=== PATIENT | male | born 1985 | race Caucasian/White ===

== ENCOUNTER 2017-09-14 09:16 | Emergency (ER) | payer SELFPAY ==
[~2017-09-14] VITALS: Ht 177.8 cm; Wt 81.0 kg
[2017-09-14 09:20] VITALS: PULSE 103; RESP 16; TEMP 98.2; O2SAT 98
[2017-09-14 09:41] LABS: BILIRUBIN, URINE NEG (NEG); BLOOD, URINE NEG (NEG); GLUCOSE,URINE NEG (NEG); KETONE, URINE 40 mg/dL (NEG); NITRITE,URINE NEG (NEG); PH, URINE 5.5 (5.0-8.5); URINE COLOR YELLOW (YELLW/STRAW); URINE LEUKOCYTE ESTERASE NEG (NEG)
--- NOTE | 2017-09-14 09:51 | PD ---
HPI Chief Complaint: Flank/Kidney Pain Time Seen by Provider: 09:46 Travel History International Travel<30 days: No Contact w/Intl Traveler<30days: No Traveled to known affect area: No History of Present Illness HPI Patient presents with complaints of right flank pain this morning. 7 out of 10. Denies colicky nature. Constant. Reports awakening this morning with 6-7 episodes of vomiting with a subjective fever. No history of kidney stones. Admits to alcohol use last night. Positive smoker. Uses marijuana daily. Denies any new or undercooked foods. PFSH Past Medical History Medical History: Denies Significant Hx Influenza Vaccination: No Past Surgical History Surgical History: No Previous Surgery Social History Alcohol Use: Yes (OCCAS) Tobacco Use: Yes (1/2 PPD) Substance Use: Yes (MARIJUANA REGULARLY-USED THIS MORNING) Allergies-Medications (Allergen,Severity, Reaction): Coded Allergies: iodine (Verified Allergy, Unknown, 09/14/17) Reported Meds & Prescriptions Reported Meds & Active Scripts Active No Active Prescriptions or Reported Medications Review of Systems General / Constitutional: No: Fever Eyes: No: Visual changes HENT: No: Headaches Cardiovascular: No: Chest Pain or Discomfort Respiratory: No: Shortness of Breath Gastrointestinal: Positive: Nausea, Vomiting, No: Abdominal Pain Genitourinary: Positive: Flank Pain, No: Dysuria Musculoskeletal: No: Pain Skin: No Rash Neurologic: No: Weakness Psychiatric: No: Depression Endocrine: No: Polydipsia Hematologic/Lymphatic: No: Easy Bruising Physical Exam Narrative GENERAL: Well-nourished, well-developed patient. SKIN: Focused skin assessment warm/dry. HEAD: Normocephalic. EYES: No scleral icterus. No injection or drainage. NECK: Supple, trachea midline. No JVD or lymphadenopathy. CARDIOVASCULAR: Regular rate and rhythm without murmurs, gallops, or rubs. RESPIRATORY: Breath sounds equal bilaterally. No accessory muscle use. GASTROINTESTINAL: Abdomen soft, non-tender, nondistended. MUSCULOSKELETAL: No cyanosis, or edema. BACK: Nontender without obvious deformity. No CVA tenderness. Data Data Last Documented VS Vital Signs Date Time Temp Pulse Resp B/P (MAP) Pulse Ox O2 Delivery O2 Flow Rate FiO2 09/14/17 10:08 84 16 134/92 (106) 96 Room Air 09/14/17 09:20 98.2 Orders Orders Urinalysis - C+S If Indicated (09/14/17 09:21) Sodium Chlor 0.9% 1000 Ml Inj (Ns 1000 M (09/14/17 10:00) Ondansetron Inj (Zofran Inj) (09/14/17 10:00) Pantoprazole Inj (Protonix Inj) (09/14/17 10:00) Al-Mag Hy-Si 40-40-4 Mg/Ml Liq (Mag-Al P (09/14/17 10:00) Lidocaine 2% Viscous (Xylocaine 2% Visco (09/14/17 10:00) Labs Laboratory Tests Test 09/14/17 09:30 Urine Collection Type CLEAN CATCH Urine Color YELLOW Urine Turbidity CLEAR Urine pH 5.5 Urine Specific [place] GREATER/EQUAL 1.030 Urine Protein NEG mg/dL Urine Glucose (UA) NEG mg/dL Urine Ketones 40 mg/dL Urine Occult Blood NEG Urine Nitrite NEG Urine Bilirubin NEG Urine Urobilinogen 0.2 MG/DL Urine Leukocyte Esterase NEG Urine RBC 0-3 /hpf Urine Squamous Epithelial Cells 0-5 /hpf Urine Mucus FEW /lpf Microscopic Urinalysis Comment CULT NOT INDICATED Urine Collection Time 09:30 [facility] Medical Decision Making Medical Screen Exam Complete: Yes Emergency Medical Condition: Yes Differential Diagnosis Alcohol withdrawal, gastritis, reflux, food poisoning Narrative Course Assessment plan discussed with patient at bedside. Much improved after GI cocktail and fluids. Taking fluids well. Diagnosis Primary Impression: Gastritis Qualified Codes: K29.00 - Acute gastritis without bleeding Patient Instructions: General Instructions Additional Instructions: Encouraged good fluid intake. Encouraged a bland high-fiber brat diet. Antiemetic as needed. Follow-up with PCP. Return to emergency room with any onset of new symptoms. Med/Other Pt SpecificInfo: Prescription(s) given Scripts Ondansetron (Zofran) 4 Mg Tab 4 MG PO Q6HR Y for NAUSEA OR VOMITING, #10 TAB 0 Refills Prov: Josue Trotter MD 09/14/17 Disposition: 01 DISCHARGE HOME Condition: Good Josue Trotter MD Sep 14, 2017 09:51
[2017-09-14] MEDS ORDERED: ONDANSETRON HCL 4 MG/2 ML VIAL IV PUSH ONE (10:00)
[2017-09-14] MEDS ORDERED: ALUMINUM/MAGNESIUM/SIMETH 30 ML CUP PO ONE (10:00)
[2017-09-14] MEDS ORDERED: PANTOPRAZOLE SODIUM 40 MG VIAL IVP ONE (10:00)
[2017-09-14] MEDS ORDERED: LIDOCAINE VISCOUS 2% SOLN 15 ML UDC PO ONE (10:00)
[2017-09-14] MEDS ORDERED: SODIUM CHLOR 0.9% 1000 ML INJ 1,000 ML IV ONE (10:00)
[2017-09-14 10:06] LABS: MUCUS URINE FEW /lpf (OCC); RBC, URINE 0-3 /hpf (0-3)
[2017-09-14 10:07] LABS: SQUAMOUS EPITHELIAL CELL URINE 0-5 /hpf (0-5)
[2017-09-14 10:08] VITALS: BP 134/92; PULSE 84; RESP 16; O2SAT 96
[2017-09-14] MEDS ORDERED: ZOFR4TAB PO (11:01)
[2017-09-14 11:07] VITALS: BP 139/92; PULSE 77; RESP 16; O2SAT 98
== END 2017-09-14 11:21 | disposition home or self-care (01) ==
LOC: PHED 09:16
DX: K29.00 Acute gastritis without bleeding (principal); F17.210 Nicotine dependence, cigarettes, uncomplicated
CPT/HCPCS: 81001; 96361; 96374; 96375; 99284; C9113; J2405; J7030